=== PATIENT | female | born 1965 | race Two or more races ===

== ENCOUNTER 2017-12-26 17:00 | Inpatient (IN) | payer MEDICAID ==
--- NOTE | 2017-12-26 17:18 | ED Physician Chart ---
ED Chief Complaint/HPI - Patient Information Date Seen:: 12/26/17 Time Seen:: 15:15 Chief Complaint:: anemia History of Present Illness:: onset today Allergies:: Allergies Allergy/AdvReac Type Severity Reaction Status Date / Time BRADEN Inhibitors Allergy Verified 12/26/17 17:07 enalapril maleate Allergy Verified 12/26/17 17:07 [From Vasotec] enalaprilat dihydrate Allergy Verified 12/26/17 17:07 [From Vasotec] metronidazole [From Flagyl] Allergy Verified 12/26/17 17:07 Vitals:: Vital Signs - 8 hr 12/26/17 17:00 Temp 98.2 F HR 112 RR 18 BP 117/57 O2 Sat % 100 Historian:: EMS, Medical Records Review:: Nurse's Note Reviewed, EMS run form Reviewed, Transfer documents Reviewed, Patient unable to respond <Junito Escobar - Last Filed: 12/26/17 18:56> - Patient Information Allergies:: Allergies Allergy/AdvReac Type Severity Reaction Status Date / Time BRADEN Inhibitors Allergy Verified 12/26/17 17:07 enalapril maleate Allergy Verified 12/26/17 17:07 [From Vasotec] enalaprilat dihydrate Allergy Verified 12/26/17 17:07 [From Vasotec] metronidazole [From Flagyl] Allergy Verified 12/26/17 17:07 Vitals:: Vital Signs - 8 hr 12/26/17 12/26/17 12/26/17 17:00 17:55 19:29 Temp 98.2 F HR 112 105 119 RR 18 18 18 BP 117/57 117/57 O2 Sat % 100 100 99 <Aline Kearns - Last Filed: 12/26/17 20:10> ED Review of Systems - Review of Systems General/Constitutional: No fever (patient none verbal unable to provide info) Skin: Skin lesions <Junito Escobar - Last Filed: 12/26/17 18:56> ED Past Medical History - Past Medical History Past Medical History: HTN (dm ecoli cerebral palsy svt hypothyriodism), DM ( cerebral palsy), CVA/TIA, Thyroid disorder, Other (respiratory failure ecoli sepsis) Family History: None Social History: No Drug Use Psychiatricy History: Other (cerebral palsy) <Junito Escobar - Last Filed: 12/26/17 18:56> Family Medical History - Family Member Mother History Unknown: Yes <Junito Escobar - Last Filed: 12/26/17 18:56> ED Physical Exam - Physical Examination General/Constitutional: No distress, Non-toxic appearing Head: Atraumatic Neck: Nontender Respiratory: Nl effort/Exclusion (rhonchi) Cardio Vascular: RRR GI: No tenderness/rebounding/guarding (stool neg blood) <Junito Escobar - Last Filed: 12/26/17 18:56> - Physical Examination Other Skin comments:: large, 5 inch x 5 inch fungating mass present on the left breast (according to charge nurse at the [facility], the sister, Karen Underwood stated that surgery should not be performed on her sister Joie. There is a slow ooze from this left breast mass which I will silver nitrate. Recommend covering the mass with antibiotic ointment and apply a large piece of xeroform, adaptic or telfa on top. A sports bra would keep the dressings in place. <Aline Kearns - Last Filed: 12/26/17 20:10> ED Labs/Radiology/EKG Results - Lab Results Results: Laboratory Tests 12/26/17 12/26/17 12/26/17 18:20 18:20 18:35 WBC 7.4 RBC 2.67 L Hgb 6.7 L* Hct 20.7 L* MCV 77.6 L MCH 24.9 L MCHC Differential 32.2 RDW 13.3 Plt Count 574 H MPV 6.9 Neutrophils % 63.0 Lymphocytes % 21.2 Monocytes % 11.7 H Eosinophils % 2.9 Basophils % 1.2 Sodium 133 L Potassium 4.1 Chloride 96 L Carbon Dioxide 31.6 H Anion Gap 9.5 BUN 36 H Creatinine 0.8 Est GFR ( Amer) > 60.0 Est GFR (Non-Af Amer) > 60.0 BUN/Creatinine Ratio 45.0 Glucose 97 Calcium 9.8 Urine Source CLEAN C Urine Color YELLOW Urine Clarity HAZY Urine pH 6.0 Ur Specific [place] <= 1.005 Urine Protein NEGATIVE Urine Glucose (UA) NEGATIVE Urine Ketones NEGATIVE Urine Blood NEGATIVE Urine Nitrate NEGATIVE Urine Bilirubin NEGATIVE Urine Urobilinogen 0.2 Ur Leukocyte Esterase TRACE H Urine RBC NONE SEEN Urine WBC 2-5 Ur Epithelial Cells FEW Urine Bacteria NONE SEEN <Aline Kerans - Last Filed: 12/26/17 20:10> ED Assessment - Assessment General Assessment: anemia per history trachea dependent <Junito Escobar - Last Filed: 12/26/17 18:56> - Assessment Assessment/Comments:: Examined patient upon from receiving report from Dr. Escobar. Dr. Pierce called us for admit orders at 19:45 p.m. - Procedures Procedures:: Six silver nitrate sticks applied to left breast mass which is oozing to stop bleeding. Pressure applied. Informed Consent: Procedure/risk/benefits explained by MD: No (implied. Patient has inadequate mental capacity.) <Aline Kearns - Last Filed: 12/26/17 20:10> ED Septic Shock - . Is Septic Shock (SBP<90, OR Lactate>4 mmol\L) present?: No - <6hrs of presentation: Vital Signs: Vital Signs - 8 hr 12/26/17 17:00 Temp 98.2 F HR 112 RR 18 BP 117/57 O2 Sat % 100 <Junito Escoabr - Last Filed: 12/26/17 18:56> - . Is Septic Shock (SBP<90, OR Lactate>4 mmol\L) present?: No - <6hrs of presentation: Vital Signs: Vital Signs - 8 hr 12/26/17 12/26/17 12/26/17 17:00 17:55 19:29 Temp 98.2 F HR 112 105 119 RR 18 18 18 BP 117/57 117/57 O2 Sat % 100 100 99 <Aline Kearns - Last Filed: 12/26/17 20:10> ED Reassessment (Disposition) - Diagnosis Diagnosis:: Anemia Large, fungating left breast mass Failure to Thrive <Aline Kearns - Last Filed: 12/26/17 20:10> ED Discharge Plan <Junito Escobar - Last Filed: 12/26/17 18:56> <Aline Kearns - Last Filed: 12/26/17 20:10> - Patient Disposition Admit/Discharge/Transfer: TRANSFER TO ACUTE HOSP
[2017-12-26 18:39] LABS: BASOPHILE ABSOLUTE 0.1 Th/cumm (0-0.2); EOSINOPHILE ABSOLUTE 0.2 Th/cmm (0.1-0.4); LYMPHOCYTE ABSOLUTE 1.6 Th/cmm (1.5-3.0); MEAN CORPUSCULAR HEMOGLOBIN 24.9 pg (27.0-31.0); MEAN CORPUSCULAR HGB CONC 32.2 pg (28.0-36.0); MONOCYTE ABSOLUTE 0.9 Th/cmm (0.3-1.0)
[2017-12-26 18:42] LABS: % BASOPHILS 1.2 % (0.0-2.0); % EOSINOPHILS 2.9 % (0.0-5.0); % LYMPHOCYTES 21.2 % (20.0-50.0); % MONOCYTES 11.7 % (2.0-10.0); ANION GAP 9.5 (7.0-16.0); BUN - UREA NITROGEN 36 mg/dL (7-25); CALCIUM SERUM 9.8 mg/dL (8.6-10.3); CARBON DIOXIDE 31.6 mEq/L (21.0-31.0); CHLORIDE 96 mEq/L (98-107); CREATININE - SERUM 0.8 mg/dL (0.6-1.2); GFR AFRICAN-AMERICAN > 60.0 ml/min (>90); GFR NON AFRICAN-AMERICAN > 60.0 ml/min; GLUCOSE 97 mg/dL (70-105); MEAN CELL VOLUME 77.6 fl (81-100); MEAN PLATELET VOLUME 6.9 fl; NEUTROPHILE ABSOLUTE 4.6 Th/cmm (1.8-8.0); PLATELET COUNT 574 Th/cmm (150-400); POTASSIUM SERUM 4.1 mEq/L (3.5-5.1); RED BLOOD COUNT 2.67 Mil/cmm (3.80-5.10); RED CELL DISTRIBUTION WIDTH 13.3 % (11.5-20.0); SODIUM SERUM 133 mEq/L (136-145); WHITE BLOOD COUNT 7.4 Th/cmm (4.8-10.8)
[2017-12-26 18:54] LABS: HEMATOCRIT 20.7 % (41.0-60); HEMOGLOBIN 6.7 gm/dL (12-16)
[2017-12-26 18:56] LABS: URINE MICROSCOPIC INDICATED? YES; URINE SOURCE CLEAN C
[2017-12-26 18:57] LABS: URINE BILIRUBIN NEGATIVE (NEGATIVE); URINE BLOOD NEGATIVE (NEGATIVE); URINE GLUCOSE (UA) NEGATIVE (NEGATIVE); URINE KETONE NEGATIVE (NEGATIVE); URINE NITRATE NEGATIVE (NEGATIVE); URINE PROTEIN NEGATIVE (NEGATIVE); URINE UROBILINOGEN 0.2 E.U./dL (0.2 - 1.0)
[2017-12-26 19:27] LABS: URINE CLARITY HAZY (CLEAR); URINE COLOR YELLOW
[2017-12-26 19:31] LABS: URINE BACTERIA NONE SEEN /hpf (NONE SEEN); URINE EPITHELIAL CELLS FEW /lpf (FEW); URINE LEUKOCYTE ESTERASE TRACE (NEGATIVE); URINE RBC NONE SEEN /hpf (0-5)
[2017-12-26] MEDS ORDERED: Silver Nitrate 1 Swab TP ONE (19:41)
[2017-12-26] MEDS ORDERED: Morphine Sulfate 2 mg/mL 1mL Syr IV STA (19:55)
[2017-12-26] MEDS ORDERED: Triple Antibiotic 0.94 gm Pkt TP ONE (19:56)
[2017-12-26] MEDS ORDERED: Morphine Sulfate 2 mg/mL 1mL Syr ONE (19:57)
[2017-12-26] MEDS ORDERED: Silver Nitrate 1 Swab TP STA (20:02)
[2017-12-26] MEDS ORDERED: MORPHINE SULFATE GT PRN (22:59)
[2017-12-26] MEDS ORDERED: Magnesium Hydroxide (MOM) 30 mL UDC GT PRN (22:59)
[2017-12-26] MEDS: Hydrocodone/APAP 5mg/325mg Tab GT SCH (23:11)
[2017-12-26] MEDS: Dicyclomine 10 mg Cap GT SCH (23:12)
[2017-12-27] MEDS: D5-0.9%NS 1,000 ML IV SCH ×2 (02:06→14:24)
[2017-12-27 04:22] LABS: % BASOPHILS 1.3 % (0.0-2.0); % EOSINOPHILS 2.2 % (0.0-5.0); % LYMPHOCYTES 23.2 % (20.0-50.0); % MONOCYTES 12.2 % (2.0-10.0); % NEUTROPHILS 61.1 % (40.0-80.0); BASOPHILE ABSOLUTE 0.1 Th/cumm (0-0.2); EOSINOPHILE ABSOLUTE 0.2 Th/cmm (0.1-0.4); LYMPHOCYTE ABSOLUTE 1.9 Th/cmm (1.5-3.0); MEAN CELL VOLUME 79.9 fl (81-100); MEAN CORPUSCULAR HEMOGLOBIN 26.3 pg (27.0-31.0); MEAN CORPUSCULAR HGB CONC 32.9 pg (28.0-36.0); NEUTROPHILE ABSOLUTE 5.1 Th/cmm (1.8-8.0); PLATELET COUNT 483 Th/cmm (150-400); WHITE BLOOD COUNT 8.3 Th/cmm (4.8-10.8)
[2017-12-27 04:33] LABS: INR 0.94 (0.5-1.4); PROTHROMBIN TIME (TEST) 9.8 SECONDS (9.5-11.5)
[2017-12-27 04:36] LABS: ALB/GLOB RATIO 0.7 (1.0-1.8); ALKALINE PHOSPHATASE 60 U/L (34-104); ANION GAP 7.7 (7.0-16.0); BILIRUBIN,TOTAL 0.6 mg/dL (0.3-1.0); BUN - UREA NITROGEN 32 mg/dL (7-25); CALCIUM SERUM 9.5 mg/dL (8.6-10.3); CARBON DIOXIDE 32.6 mEq/L (21.0-31.0); CHLORIDE 99 mEq/L (98-107); CREATININE - SERUM 0.8 mg/dL (0.6-1.2); GFR AFRICAN-AMERICAN > 60.0 ml/min (>90); GFR NON AFRICAN-AMERICAN > 60.0 ml/min; GLUCOSE 116 mg/dL (70-105); MAGNESIUM 2.1 mg/dL (1.9-2.7); POTASSIUM SERUM 4.3 mEq/L (3.5-5.1); SGOT 22 U/L (13-39); SGPT/ALT 7 U/L (7-52); SODIUM SERUM 135 mEq/L (136-145); TOTAL PROTEIN,SERUM 7.2 gm/dL (6.0-8.3)
[2017-12-27 04:37] LABS: HEMATOCRIT 31.2 % (41.0-60); HEMOGLOBIN 10.3 gm/dL (12-16)
[2017-12-27] MEDS: Hydrocodone/APAP 5mg/325mg Tab GT SCH ×2 (05:03→10:16)
[2017-12-27] MEDS: Dicyclomine 10 mg Cap GT SCH ×4 (05:03→23:19)
[2017-12-27] MEDS: Ipratropium Neb 0.5 mg/2.5 mL UD HHN SCH ×4 (07:06→19:31)
[2017-12-27] MEDS: Albuterol Nebulizer 2.5mg/3mL HHN SCH ×4 (07:06→19:31)
[2017-12-27] MEDS ORDERED: Pantoprazole 40 mg/Packet GT SCH (07:30)
[2017-12-27 07:50] VITALS: BP 105/63
[2017-12-27] MEDS: Ferrous Sulfate 300 MG/5 ML UDC GT SCH ×3 (08:12→21:41)
[2017-12-27] MEDS: Levothyroxine 0.05 Mg Tab GT SCH (08:12)
[2017-12-27] MEDS: Docusate Sodium 100 mg/10 mL UD GT SCH ×2 (08:12→16:16)
--- NOTE | 2017-12-27 08:32 | Diagnostic Imaging Report ---
CHEST X-RAY: AP view INDICATION: Pneumonia COMPARISON: 02/12/2016 FINDINGS: Tracheostomy tube is stable. Patient's hand obscures the left lower hemithorax. Increased left basal lung markings are noted. There is right apical pleural thickening. There appears to be a right-sided nipple shadow. Heart size normal. Osseous structures are intact. Gas-filled loops of bowel are noted. IMPRESSION: Patient's hand obscures the left lower hemithorax. Increased left basal lung markings are noted. Infiltrate in this region cannot be excluded. Right apical pleural thickening. Right basal nipple shadow. Please perform follow-up exams with nipple markers.
[2017-12-27] MEDS ORDERED: Non-Formulary Item 1 EA (Amino Acids/Protein Hydrolys [Pro-Stat Awc Liquid] 30 ML) GT SCH (09:00)
[2017-12-27] MEDS ORDERED: Multivitamin w/ Minerals 15 mL UDC GT SCH (09:00)
[2017-12-27] MEDS: Multivitamin w/ Minerals Tab GT SCH (10:16)
[2017-12-27] MEDS: Polyvinyl Alcohol Ophth Soln 15 mL Bottle EACH EYE SCH ×3 (10:17→21:42)
[2017-12-27] MEDS: Morphine Sulfate 2 mg/mL 1mL Syr IVP PRN ×3 (14:07→23:20)
--- NOTE | 2017-12-27 15:18 | Internal Medicine Prog Note ---
Internal Medicine Subjective - Subjective Service Date: 12/27/17 ([facility] [id number]) Internal Medicine Objective - Results Result Diagrams: 12/27/17 04:05 12/27/17 04:05 Recent Labs: Laboratory Last Values WBC 8.3 Th/cmm (4.8-10.8) 12/27/17 04:05 RBC 3.90 Mil/cmm (3.80-5.10) 12/27/17 04:05 Hgb 10.3 gm/dL (12-16) L D 12/27/17 04:05 Hct 31.2 % (41.0-60) L D 12/27/17 04:05 MCV 79.9 fl (81-100) L 12/27/17 04:05 MCH 26.3 pg (27.0-31.0) L 12/27/17 04:05 MCHC Differential 32.9 pg (28.0-36.0) 12/27/17 04:05 RDW 13.0 % (11.5-20.0) 12/27/17 04:05 Plt Count 483 Th/cmm (150-400) H 12/27/17 04:05 MPV 7.0 fl 12/27/17 04:05 Neutrophils % 61.1 % (40.0-80.0) 12/27/17 04:05 Lymphocytes % 23.2 % (20.0-50.0) 12/27/17 04:05 Monocytes % 12.2 % (2.0-10.0) H 12/27/17 04:05 Eosinophils % 2.2 % (0.0-5.0) 12/27/17 04:05 Basophils % 1.3 % (0.0-2.0) 12/27/17 04:05 PT 9.8 SECONDS (9.5-11.5) 12/27/17 04:05 INR 0.94 (0.5-1.4) 12/27/17 04:05 PTT (Actin FS) 23.4 SECONDS (26.0-38.0) L 12/27/17 04:05 Sodium 135 mEq/L (136-145) L 12/27/17 04:05 Potassium 4.3 mEq/L (3.5-5.1) 12/27/17 04:05 Chloride 99 mEq/L (98-107) 12/27/17 04:05 Carbon Dioxide 32.6 mEq/L (21.0-31.0) H 12/27/17 04:05 Anion Gap 7.7 (7.0-16.0) 12/27/17 04:05 BUN 32 mg/dL (7-25) H 12/27/17 04:05 Creatinine 0.8 mg/dL (0.6-1.2) 12/27/17 04:05 Est GFR ( Amer) > 60.0 ml/min (>90) 12/27/17 04:05 Est GFR (Non-Af Amer) > 60.0 ml/min 12/27/17 04:05 BUN/Creatinine Ratio 40.0 12/27/17 04:05 Glucose 116 mg/dL (70-105) H 12/27/17 04:05 Calcium 9.5 mg/dL (8.6-10.3) 12/27/17 04:05 Magnesium 2.1 mg/dL (1.9-2.7) 12/27/17 04:05 Total Bilirubin 0.6 mg/dL (0.3-1.0) 12/27/17 04:05 AST 22 U/L (13-39) 12/27/17 04:05 ALT 7 U/L (7-52) 12/27/17 04:05 Alkaline Phosphatase 60 U/L (34-104) 12/27/17 04:05 B-Natriuretic Peptide 30.6 pg/mL (5.0-100.0) 12/27/17 04:05 Total Protein 7.2 gm/dL (6.0-8.3) 12/27/17 04:05 Albumin 3.0 gm/dL (3.7-5.3) L 12/27/17 04:05 Globulin 4.2 gm/dL 12/27/17 04:05 Albumin/Globulin Ratio 0.7 (1.0-1.8) L 12/27/17 04:05 TSH 2.05 uIU/ml (0.34-5.60) 12/27/17 04:05 Urine Source CLEAN C 12/26/17 18:35 Urine Color YELLOW 12/26/17 18:35 Urine Clarity HAZY (CLEAR) 12/26/17 18:35 Urine pH 6.0 (4.6 - 8.0) 12/26/17 18:35 Ur Specific [place] <= 1.005 (1.005-1.030) 12/26/17 18:35 Urine Protein NEGATIVE mg/dL (NEGATIVE) 12/26/17 18:35 Urine Glucose (UA) NEGATIVE mg/dL (NEGATIVE) 12/26/17 18:35 Urine Ketones NEGATIVE mg/dL (NEGATIVE) 12/26/17 18:35 Urine Blood NEGATIVE (NEGATIVE) 12/26/17 18:35 Urine Nitrate NEGATIVE (NEGATIVE) 12/26/17 18:35 Urine Bilirubin NEGATIVE (NEGATIVE) 12/26/17 18:35 Urine Urobilinogen 0.2 E.U./dL (0.2 - 1.0) 12/26/17 18:35 Ur Leukocyte Esterase TRACE (NEGATIVE) H 12/26/17 18:35 Urine RBC NONE SEEN /hpf (0-5) 12/26/17 18:35 Urine WBC 2-5 /hpf (0-5) 12/26/17 18:35 Ur Epithelial Cells FEW /lpf (FEW) 12/26/17 18:35 Urine Bacteria NONE SEEN /hpf (NONE SEEN) 12/26/17 18:35 Blood Type O POSITIVE 12/26/17 19:15 Antibody Screen NEGATIVE 12/26/17 19:15 Crossmatch See Detail 12/26/17 19:15 - Physical Exam Vitals and I&O: Vital Signs Temp 98.4 F 12/27/17 12:00 Pulse 9 12/27/17 14:00 Resp 20 12/27/17 14:00 BP 109/67 12/27/17 14:00 Pulse Ox 98 12/27/17 14:00 Intake & Output 12/26/17 12/27/17 12/27/17 18:59 06:59 18:59 Intake Total 1340 984 Balance 1340 984 Weight (lbs) 105 lb 83 lb Intake: Intake, IV Amount 984 D5-0.9%Ns 1,000 ml @ 80 984 mls/hr IV .[id number] [facility] Rx #:[id number] Tube Feeding 240 Blood Product 1000 Other 100 Other: Weight Source Estimated Bedscale Active Medications: Current Medications Acetaminophen (Tylenol) 650 mg GT Q4H PRN PRN Reason: mild pain or temp >101 Stop: 02/24/18 22:58 Acetaminophen/Hydrocodone Bitart ([place] 5mg/325mg) 1 tab GT Q6H PRN PRN Reason: Pain (Moderate) Stop: 02/24/18 22:59 Albuterol Sulfate (Albuterol 2.5mg/3ml Neb Ud) 2.5 mg HHN QIDRT [facility] Stop: 02/25/18 06:59 Last Admin: 12/27/17 10:54 Dose: 2.5 mg Artificial Tears (Artificial Tears Ophth Soln) 1 drop EACH EYE TID STEPHEN Stop: 02/25/18 08:59 Last Admin: 12/27/17 14:07 Dose: 1 drop Ascorbic Acid (Vitamin C) 500 mg GT BID [facility] Stop: 02/25/18 08:59 Last Admin: 12/27/17 08:12 Dose: 500 mg Dicyclomine HCl (Bentyl) 20 mg GT Q6H STEPHEN Stop: 02/24/18 22:59 Last Admin: 12/27/17 10:16 Dose: 20 mg Docusate Sodium (Colace) 100 mg GT BID [facility] Stop: 02/25/18 08:59 Last Admin: 12/27/17 08:12 Dose: 100 mg Ferrous Sulfate (Iron) 300 mg GT TID [facility] Stop: 02/25/18 08:59 Last Admin: 12/27/17 14:06 Dose: 300 mg Dextrose/Sodium Chloride (D5-0.9%Ns) 1,000 mls @ 80 mls/hr IV .[id number] [facility] Stop: 02/24/18 23:14 Last Admin: 12/27/17 14:24 Dose: 80 mls/hr Ipratropium [place] (Atrovent Neb 0.5mg/2.5ml) 0.5 mg HHN QIDRT [facility] Stop: 02/25/18 06:59 Last Admin: 12/27/17 10:54 Dose: 0.5 mg Levothyroxine Sodium (Synthroid) 0.05 mg GT DAILY [facility] Stop: 02/25/18 08:59 Last Admin: 12/27/17 08:12 Dose: 0.05 mg Magnesium Hydroxide (Milk Of Magnesia) 30 ml GT Q6H PRN PRN Reason: Constipation Stop: 02/24/18 22:58 Miscellaneous (Amino Acids/Protein Hydrolys [Pro-Stat Awc Liquid]) 30 ml GT DAILY [facility] Stop: 02/25/18 08:59 Morphine Sulfate (Ms-Contin) 15 mg PO BID STEPHEN Stop: 02/25/18 16:59 Morphine Sulfate (Morphine) 2 mg IVP Q4H PRN PRN Reason: Pain (Severe) Stop: 02/25/18 13:18 Last Admin: 12/27/17 14:07 Dose: 2 mg Ondansetron HCl (Zofran) 4 mg IV Q8H PRN PRN Reason: Nausea / Vomiting Stop: 02/24/18 23:00 Pantoprazole Sodium (Protonix) 40 mg GT BID [facility] Stop: 02/25/18 16:59 Sucralfate (Carafate) 1 gm GT QID [facility] Stop: 02/25/18 08:59 Last Admin: 12/27/17 14:07 Dose: 1 gm - Procedures Procedures: Procedures Procedure Code Date BLOOD TRANSFUSION SERVICE 19601 06/21/10 CHANGE FEEDING DEVICE IN UP INTEST TRACT, INTERN BRAND APPROACH [id number] 02/09/16 CHANGE GASTROSTOMY TUBE 08642 02/09/16 CONTINUOUS INVASIVE MECHANICAL VENTILATION <96 CONSEC HRS 96.71 05/10/10 CONTINUOUS INVASIVE MECHANICAL VENTILATION =/>96 CONSEC HRS 96.72 06/21/10 EGD BIOPSY SINGLE/MULTIPLE 32987 02/09/16 EGD DIAGNOSTIC BRUSH WASH 07664 07/21/[address] GASTROSTOMY TUBE 27199 02/09/16 EXCISION OF STOMACH, PYLORUS, ENDO, DIAGN [id number] 02/09/16 GASTRIC LAVAGE 96.33 07/21/09 INSERT INDWELLING CATH 57.94 06/21/10 INSERT NON-TUNNEL CV CATH 90400 07/21/09 INSERT PICC CATH 12191 06/21/10 INSERT TEMP BLADDER CATH 50818 06/21/10 INSPECTION OF LOWER INTESTINAL TRACT, ENDO [id number] 02/09/16 OTHER ENDOSCOPY OF SM INTEST 45.13 04/13/11 PACKED CELL TRANSFUSION 99.04 06/21/10 PERCUTANEOUS GASTROJEJUNOSTOMY [ENDOSCOPIC] 44.32 06/21/10 PERCUTANEOUS [ENDOSCOPIC] GASTROSTOMY [PEG] 43.11 09/10/06 PERCUTANEOUS [ENDOSCOPIC] JEJUNOSTOMY [PEG] 46.32 07/21/09 REPLACE GASTROSTOMY TUBE 97.02 04/13/11 REPLACE SMALL BOWEL TUBE 97.03 05/10/10 SMALL BOWEL ENDOSCOPY 03499 06/21/10 VENOUS CATHETERIZATION NEC 38.93 06/21/10
[2017-12-27] MEDS: Pantoprazole 40 mg/Packet GT SCH (16:16)
--- NOTE | 2017-12-27 18:47 | Consultation ---
DATE OF CONSULTATION: 12/27/2017 HEMATOLOGY ONCOLOGY CONSULTATION REFERRING PHYSICIAN: Dr. Pierce. REASON FOR CONSULTATION: Breast mass. HISTORY OF PRESENT ILLNESS: The patient is a 52-year-old female resident of [facility]. She was admitted because of severe anemia and she was transfused. She was also found to have a left breast fungating mass; therefore, I was asked to evaluate. PAST MEDICAL HISTORY: History of respiratory failure, status post tracheostomy, cerebral palsy, diabetes, chronic anemia, and hypertension. MEDICATIONS: Reviewed. SOCIAL HISTORY: [place] resident halfway. HOSPITAL MEDICATIONS: Carafate, Protonix, Zofran, MS Contin, Synthroid, iron, Atrovent. PHYSICAL EXAMINATION: GENERAL: The patient is awake, moving her head and looking around, noncommunicative. VITAL SIGNS: Temperature 98, blood pressure 105/57. HEENT: Tracheostomy in place, peripheral IV in the right arm. CHEST: Left breast fungating mass foul smelling with infiltration into chest wall. ABDOMEN: Gastrostomy tube in place. Patel catheter in place. EXTREMITIES: Atrophic muscles. LABORATORY DATA: Hemoglobin 6.7 from admission after transfusion was 10.3 with normal white count and elevated platelet count 483, MCV from admission was 77. Coagulation panel normal. Liver function is normal. Creatinine 0.8. ASSESSMENT: Left breast mass most consistent with infiltrating malignant neoplasm. I will obtain CT scan of the chest and abdomen and pelvis to evaluate for metastatic disease. The patient never had a biopsy confirmation for pathology and she will need biopsy confirmation from the indurated tissue in the fungating mass. I will obtain a tumor marker CA 27-29. Based on the results from pathology of the biopsy if the tumor is hormone receptor positive, the patient will benefit from hormone therapy to shrink down the tumor and help with the healing process. I will up by Flagyl and nystatin to the fungating mass. Thank you, Dr. Pierce for the opportunity to participate in the care of this interesting case with you. JOB# [id number]
[2017-12-27] MEDS: cefTRIAXone 1 GM in Sodium Chloride 0.9% 50 ML IV SCH (20:10)
[2017-12-27] MEDS ORDERED: IOHEXOL 300mgI/mL 100 ML VIAL ONE (20:32)
--- NOTE | 2017-12-28 01:11 | History & Physical ---
ADMIT DATE: 12/27/2017 DICTATED FOR: Christian Pierce D.O. CHIEF COMPLAINT: Low hemoglobin of 6.4. HISTORY OF PRESENT ILLNESS: This is a 52-year-old female who is well known to me from [facility]. I was called on this patient due to hemoglobin of 6.4. Initially, the patient's ____ subacute unit ____ transferred to hospital, but when labs are reported to the patient's family and explained the results, the patient's family members wanted to change ____ to transfer the patient to the hospital for blood transfusion. Upon examination, the patient is awake and alert, on ____ noted with thick copious amount of secretions. PAST MEDICAL HISTORY: Chronic respiratory failure, tracheostomy status, dysphagia, gastrostomy, cerebral palsy, intellectual disability, type 2 diabetes, anemia, and hypertension. ALLERGIES: BRADEN INHIBITORS, ENALAPRIL, AND FLAGYL. SOCIAL HISTORY: The patient is a [place] resident ____ nursing care. MEDICATIONS: Please see medication list. REVIEW OF SYSTEMS: Unable to obtain due to patient's mental status. The patient is nonverbal. PHYSICAL EXAMINATION: GENERAL: The patient is awake, nonverbal with tracheostomy, in no apparent distress. VITAL SIGNS: Temperature 98.4, heart rate 95, blood pressure 109/56, and O2 of 98%. HEENT: Head, normocephalic and atraumatic. NECK: Supple. No mass. LUNGS: Scattered rhonchi. HEART: Regular rate and rhythm. No murmurs or gallop. BREASTS: Large 5 x 5 fungating mass on the left breast. ABDOMEN: Soft, nontender, and nondistended. LABORATORY DATA: WBC 8.3, H and H 10.3/31.2, and platelets of 483. Sodium 135, potassium 4.3, chloride 99, BUN 32, and creatinine 0.8. DIAGNOSTIC STUDIES: The patient had a chest x-ray done and impression is an obscured left lower hemothorax, increased left basal lung markings are noted. Infiltrate in this region cannot be excluded, right basilar nipple shadow. ASSESSMENT: Severe anemia, left breast CA, acute renal insufficiency, rule out acute dehydration, mild protein calorie malnutrition, cerebral palsy, chronic respiratory failure, dysphagia, type 2 diabetes, and gastrostomy and tracheostomy status. PLAN: We will monitor the patient's H and H. We will get potash flaker on the case as well as oncologist. We will get sputum for culture and respiratory treatments to continue. We will continue to monitor this patient. [facility]# [id number]
--- NOTE | 2017-12-28 01:45 | Consultation ---
DATE OF CONSULTATION: 12/27/[address] Pierce for this consultation. HISTORY OF PRESENT ILLNESS: This is a 52-year-old female who is being seen in the long term. The patient was found to have a breast mass and according to family, decided not to do anything except just comfort care. The patient has been having some abdominal pain on and off and was very pale and I saw her on Tuesday and ordered a CBC. It apparently came back with severe anemia and is transferred here for further evaluation. The patient received blood transfusion. She looks a little bit better, but still very weak. The patient has lost lot of weight as for the past few months. Her other past medical history are asthma, mental disability, and upper airway obstruction status post tracheostomy. PHYSICAL EXAMINATION: GENERAL: Awake, not in acute distress. VITAL SIGNS: Temperature 98.4, pulse 105, respiration is 23, blood pressure 119/62, and saturation 100%. HEENT: Atraumatic and normocephalic. Ears, nose, and throat normal. NECK: Supple. No JVD. CHEST: There are good breath sounds, few rhonchi. HEART: Regular. ABDOMEN: Soft. EXTREMITIES: No edema. LABORATORY DATA AND DIAGNOSTIC STUDIES: WBC 8.3, hemoglobin 10.3, hematocrit 31.3, and platelets 483. Sodium 135, potassium 4.3, BUN 32, and creatinine 0.8. Chest x-ray showed an obvious infiltrate. IMPRESSION: This is a 52-year-old female with severe anemia, most likely due to the breast mass, possible malignancy with metastasis. PLAN: 1. Continue nebulizer treatment. 2. Thickened skin. 3. Antibiotics. 4. Hematology/Oncology evaluation in progress. JOB# [id number]
[2017-12-28] MEDS: D5-0.9%NS 1,000 ML IV SCH ×2 (03:48→15:26)
[2017-12-28] MEDS: Morphine Sulfate 2 mg/mL 1mL Syr IVP PRN ×3 (03:48→20:20)
[2017-12-28 05:04] LABS: % BASOPHILS 0.5 % (0.0-2.0); % EOSINOPHILS 0.7 % (0.0-5.0); % LYMPHOCYTES 10.6 % (20.0-50.0); % MONOCYTES 9.2 % (2.0-10.0); BASOPHILE ABSOLUTE 0.1 Th/cumm (0-0.2); EOSINOPHILE ABSOLUTE 0.1 Th/cmm (0.1-0.4); HEMATOCRIT 31.4 % (41.0-60); HEMOGLOBIN 10.2 gm/dL (12-16); LYMPHOCYTE ABSOLUTE 1.4 Th/cmm (1.5-3.0); MEAN CORPUSCULAR HGB CONC 32.4 pg (28.0-36.0); MEAN PLATELET VOLUME 6.9 fl; MONOCYTE ABSOLUTE 1.2 Th/cmm (0.3-1.0); NEUTROPHILE ABSOLUTE 10.3 Th/cmm (1.8-8.0); PLATELET COUNT 483 Th/cmm (150-400); RED BLOOD COUNT 3.92 Mil/cmm (3.80-5.10); RED CELL DISTRIBUTION WIDTH 13.6 % (11.5-20.0); WHITE BLOOD COUNT 13.1 Th/cmm (4.8-10.8)
[2017-12-28] MEDS: Dicyclomine 10 mg Cap GT SCH ×4 (05:24→22:00)
[2017-12-28 05:52] LABS: ANION GAP 11.8 (7.0-16.0); BUN - UREA NITROGEN 12 mg/dL (7-25); CALCIUM SERUM 9.3 mg/dL (8.6-10.3); CARBON DIOXIDE 25.8 mEq/L (21.0-31.0); CHLORIDE 106 mEq/L (98-107); CREATININE - SERUM 0.5 mg/dL (0.6-1.2); GFR AFRICAN-AMERICAN > 60.0 ml/min (>90); GFR NON AFRICAN-AMERICAN > 60.0 ml/min; GLUCOSE 129 mg/dL (70-105); POTASSIUM SERUM 3.6 mEq/L (3.5-5.1); SODIUM SERUM 140 mEq/L (136-145)
[2017-12-28] MEDS: Albuterol Nebulizer 2.5mg/3mL HHN SCH ×4 (07:09→18:57)
[2017-12-28] MEDS: Ipratropium Neb 0.5 mg/2.5 mL UD HHN SCH ×4 (07:09→18:57)
[2017-12-28] MEDS: Docusate Sodium 100 mg/10 mL UD GT SCH ×2 (08:34→16:08)
[2017-12-28] MEDS: Levothyroxine 0.05 Mg Tab GT SCH (08:34)
[2017-12-28] MEDS: Ferrous Sulfate 300 MG/5 ML UDC GT SCH ×3 (08:35→20:18)
[2017-12-28] MEDS: Multivitamin w/ Minerals Tab GT SCH (08:35)
[2017-12-28] MEDS: Pantoprazole 40 mg/Packet GT SCH ×2 (08:36→16:08)
[2017-12-28] MEDS: Polyvinyl Alcohol Ophth Soln 15 mL Bottle EACH EYE SCH ×3 (08:39→20:18)
--- NOTE | 2017-12-28 08:41 | Diagnostic Imaging Report ---
CT Chest with IV contrast HISTORY: Breast cancer. COMPARISON: CT abdomen and pelvis the same day. Technique: Axial images were obtained from the base of the neck to the upper abdomen following administration of IV contrast. Coronal reconstructions were made. Total DLP 199, CTD I 6.4 FINDINGS: Findings: Exam is limited due to positioning and motion. Calcified nodules within the right lobe of thyroid gland are noted. A tracheostomy tube is noted. No evidence of mediastinal lymphadenopathy. Heart size is normal. Moderate atherosclerosis is noted with coronary artery calcifications. Distended air-filled esophagus is noted. Evaluation of the pulmonary parenchyma demonstrates chronic changes throughout the lungs. Right apical airspace disease and scarring is seen with areas of bronchiectasis. Few Patchy bilateral infiltrates are noted throughout the bilateral lungs. Subcentimeter nodular infiltrates are also noted. No pleural effusions. Hypoventilatory lung changes are also noted. Degenerative changes of the spine are noted. There is a very large irregular fungating mass of the left breast measuring 10.4 x 4.2 cm. Mildly prominent left axillary lymph nodes are noted enlarged with a 1.6 x 1 cm. IMPRESSION: Very large fungating mass of the left breast most suggestive of malignancy. Mildly prominent left axillary lymph nodes are noted. Neoplastic involvement should be considered. Chronic lung changes with areas of scarring greatest within the right apex with pleural thickening this region. Patchy nodular infiltrates are seen bilaterally. Findings may be due to pneumonia, however, less likely neoplastic involving cannot be excluded. Short-term follow-up after resolution of acute symptoms is recommended for further assessment. Distended air-filled esophagus. Atherosclerosis. Calcified right thyroid lobe nodules. If indicated, ultrasound may be obtained Tracheostomy.
--- NOTE | 2017-12-28 08:46 | Diagnostic Imaging Report ---
CT abdomen and pelvis with intravenous contrast Indication: Breast cancer Comparison: CT abdomen and pelvis 02/09/[address] chest on 12/27/2017, Technique: Axial images were obtained from the lung bases to the bilateral proximal femurs with IV contrast. Coronal reconstructions were made. total DLP: 379, CTDI8.4 FINDINGS: Please refer to CT chest performed the same day for further assessment of the lung bases. Exam is severely limited due to motion and body habitus. No focal hepatic lesions. Hepatomegaly is seen with prominence of the left lobe. No focal splenic lesions. The pancreas is poorly evaluated on this exam. The common bile duct appears prominent measuring up to 1.2 cm. The adrenal glands are poorly visualized. Limited evaluation of the kidneys demonstrates no hydronephrosis or obvious focal lesions. Distended urinary bladder is seen with urinary bladder jets. There may be a wide base left-sided urinary bladder diverticulum. Moderate stool is noted with diffuse marked gaseous distended loops of bowel. There may have been previous surgery of the proximal sigmoid colon. Diverticulosis is noted without evidence of diverticulitis. Percutaneous gastric feeding tube is noted with gas and fluid distended stomach. Diffuse moderate atherosclerosis is noted. No evidence of retroperitoneal lymphadenopathy. No free fluid or free air. Spinal scoliosis is noted. There is abnormal angulation of the hip joints which may be congenital. IMPRESSION: Severely distended loops of gas-filled bowel which may be due to severe ileus or possibly distal obstructive process. Nonspecific Distended fluid-filled loops of small bowel are also noted. Moderate stool. There appear to be postsurgical changes of the proximal sigmoid colon, please correlate with clinical history. Mild diverticulosis. Fluid and air distended stomach containing a percutaneous gastric feeding tube. Prominent common bile duct measuring up to 1.2 cm. If indicated follow-up exam such as ultrasound or MRCP may be obtained. Mildly prominent liver, particularly of the left lobe. Distended urinary bladder. There may be a wide base urinary bladder diverticulum on the left side. Atherosclerotic vascular disease.
[2017-12-28] MEDS: Nystatin Cream 100,000 u/gm Cream 15 gm TP SCH (09:55)
--- NOTE | 2017-12-28 10:28 | General Progress Note ---
Subjective - Review of Systems Service Date: 12/28/17 Objective - Results Result Diagrams: 12/28/17 04:45 12/28/17 04:45 Recent Labs: Laboratory Last Values WBC 13.1 Th/cmm (4.8-10.8) H 12/28/17 04:45 RBC 3.92 Mil/cmm (3.80-5.10) 12/28/17 04:45 Hgb 10.2 gm/dL (12-16) L 12/28/17 04:45 Hct 31.4 % (41.0-60) L 12/28/17 04:45 MCV 80.0 fl (81-100) L 12/28/17 04:45 MCH 26.0 pg (27.0-31.0) L 12/28/17 04:45 MCHC Differential 32.4 pg (28.0-36.0) 12/28/17 04:45 RDW 13.6 % (11.5-20.0) 12/28/17 04:45 Plt Count 483 Th/cmm (150-400) H 12/28/17 04:45 MPV 6.9 fl 12/28/17 04:45 Neutrophils % 79.0 % (40.0-80.0) 12/28/17 04:45 Lymphocytes % 10.6 % (20.0-50.0) L 12/28/17 04:45 Monocytes % 9.2 % (2.0-10.0) 12/28/17 04:45 Eosinophils % 0.7 % (0.0-5.0) 12/28/17 04:45 Basophils % 0.5 % (0.0-2.0) 12/28/17 04:45 PT 9.8 SECONDS (9.5-11.5) 12/27/17 04:05 INR 0.94 (0.5-1.4) 12/27/17 04:05 PTT (Actin FS) 23.4 SECONDS (26.0-38.0) L 12/27/17 04:05 Sodium 140 mEq/L (136-145) 12/28/17 04:45 Potassium 3.6 mEq/L (3.5-5.1) 12/28/17 04:45 Chloride 106 mEq/L (98-107) 12/28/17 04:45 Carbon Dioxide 25.8 mEq/L (21.0-31.0) 12/28/17 04:45 Anion Gap 11.8 (7.0-16.0) 12/28/17 04:45 BUN 12 mg/dL (7-25) 12/28/17 04:45 Creatinine 0.5 mg/dL (0.6-1.2) L 12/28/17 04:45 Est GFR ( Amer) > 60.0 ml/min (>90) 12/28/17 04:45 Est GFR (Non-Af Amer) > 60.0 ml/min 12/28/17 04:45 BUN/Creatinine Ratio 24.0 12/28/17 04:45 Glucose 129 mg/dL (70-105) H 12/28/17 04:45 Calcium 9.3 mg/dL (8.6-10.3) 12/28/17 04:45 Magnesium 2.1 mg/dL (1.9-2.7) 12/27/17 04:05 Total Bilirubin 0.6 mg/dL (0.3-1.0) 12/27/17 04:05 AST 22 U/L (13-39) 12/27/17 04:05 ALT 7 U/L (7-52) 12/27/17 04:05 Alkaline Phosphatase 60 U/L (34-104) 12/27/17 04:05 B-Natriuretic Peptide 30.6 pg/mL (5.0-100.0) 12/27/17 04:05 Total Protein 7.2 gm/dL (6.0-8.3) 12/27/17 04:05 Albumin 3.0 gm/dL (3.7-5.3) L 12/27/17 04:05 Globulin 4.2 gm/dL 12/27/17 04:05 Albumin/Globulin Ratio 0.7 (1.0-1.8) L 12/27/17 04:05 TSH 2.05 uIU/ml (0.34-5.60) 12/27/17 04:05 Urine Source CLEAN C 12/26/17 18:35 Urine Color YELLOW 12/26/17 18:35 Urine Clarity HAZY (CLEAR) 12/26/17 18:35 Urine pH 6.0 (4.6 - 8.0) 12/26/17 18:35 Ur Specific [place] <= 1.005 (1.005-1.030) 12/26/17 18:35 Urine Protein NEGATIVE mg/dL (NEGATIVE) 12/26/17 18:35 Urine Glucose (UA) NEGATIVE mg/dL (NEGATIVE) 12/26/17 18:35 Urine Ketones NEGATIVE mg/dL (NEGATIVE) 12/26/17 18:35 Urine Blood NEGATIVE (NEGATIVE) 12/26/17 18:35 Urine Nitrate NEGATIVE (NEGATIVE) 12/26/17 18:35 Urine Bilirubin NEGATIVE (NEGATIVE) 12/26/17 18:35 Urine Urobilinogen 0.2 E.U./dL (0.2 - 1.0) 12/26/17 18:35 Ur Leukocyte Esterase TRACE (NEGATIVE) H 12/26/17 18:35 Urine RBC NONE SEEN /hpf (0-5) 12/26/17 18:35 Urine WBC 2-5 /hpf (0-5) 12/26/17 18:35 Ur Epithelial Cells FEW /lpf (FEW) 12/26/17 18:35 Urine Bacteria NONE SEEN /hpf (NONE SEEN) 12/26/17 18:35 Blood Type O POSITIVE 12/26/17 19:15 Antibody Screen NEGATIVE 12/26/17 19:15 Crossmatch See Detail 12/26/17 19:15 - Physical Exam Vitals and I&O: Vital Signs Temp 97.5 F 12/28/17 09:00 Pulse 98 12/28/17 09:00 Resp 24 12/28/17 09:00 BP 143/58 12/28/17 09:00 Pulse Ox 98 12/28/17 10:00 Intake & Output 12/27/17 12/28/17 12/28/17 18:59 06:59 18:59 Intake Total 1434 1270 Balance 1434 1270 Weight (lbs) 37.648 kg 37.195 kg Intake: Intake, IV Amount 984 1050 D5-0.9%Ns 1,000 ml @ 80 984 1000 mls/hr IV .[id number] [facility] Rx #:[id number] cefTRIAXone 1 gm In 50 Sodium Chloride 0.9% 50 ml @ 100 mls/hr IV Q24HR [facility] Rx#:[id number] Tube Feeding 330 120 Other 120 100 Other: # Voids 2 5 # Bowel Movements 1 2 Stool Characteristics Soft Formed Brown Weight Source Bedscale Bedscale Active Medications: Current Medications Acetaminophen (Tylenol) 650 mg GT Q4H PRN PRN Reason: mild pain or temp >101 Stop: 02/24/18 22:58 Acetaminophen/Hydrocodone Bitart ([place] 5mg/325mg) 1 tab GT Q6H PRN PRN Reason: Pain (Moderate) Stop: 02/24/18 22:59 Acetylcysteine (Mucomyst 20%) 2 ml HHN Q4HRT [facility] Stop: 02/25/18 18:59 Last Admin: 12/28/17 07:09 Dose: 2 ml Albuterol Sulfate (Albuterol 2.5mg/3ml Neb Ud) 2.5 mg HHN QIDRT [facility] Stop: 02/25/18 06:59 Last Admin: 12/28/17 07:09 Dose: 2.5 mg Artificial Tears (Artificial Tears Ophth Soln) 1 drop EACH EYE TID [facility] Stop: 02/25/18 08:59 Last Admin: 12/28/17 08:39 Dose: 1 drop Ascorbic Acid (Vitamin C) 500 mg GT BID [facility] Stop: 02/25/18 08:59 Last Admin: 12/28/17 08:35 Dose: 500 mg Dicyclomine HCl (Bentyl) 20 mg GT Q6H [facility] Stop: 02/24/18 22:59 Last Admin: 12/28/17 05:24 Dose: 20 mg Docusate Sodium (Colace) 100 mg GT BID [facility] Stop: 02/25/18 08:59 Last Admin: 12/28/17 08:34 Dose: 100 mg Ferrous Sulfate (Iron) 300 mg GT TID [facility] Stop: 02/25/18 08:59 Last Admin: 12/28/17 08:35 Dose: 300 mg Dextrose/Sodium Chloride (D5-0.9%Ns) 1,000 mls @ 80 mls/hr IV .[id number] [facility] Stop: 02/24/18 23:14 Last Admin: 12/28/17 03:48 Dose: 80 mls/hr Ceftriaxone Sodium 1 gm/ (Sodium Chloride) 50 mls @ 100 mls/hr IV Q24HR [facility] Stop: 02/25/18 18:59 Last Infusion: 12/27/17 21:10 Dose: Infused Ipratropium [place] (Atrovent Neb 0.5mg/2.5ml) 0.5 mg HHN QIDRT [facility] Stop: 02/25/18 06:59 Last Admin: 12/28/17 07:09 Dose: 0.5 mg Levothyroxine Sodium (Synthroid) 0.05 mg GT DAILY [facility] Stop: 02/25/18 08:59 Last Admin: 12/28/17 08:34 Dose: 0.05 mg Magnesium Hydroxide (Milk Of Magnesia) 30 ml GT Q6H PRN PRN Reason: Constipation Stop: 02/24/18 22:58 Miscellaneous (Amino Acids/Protein Hydrolys [Pro-Stat Awc Liquid]) 30 ml GT DAILY [facility] Stop: 02/25/18 08:59 Miscellaneous (Pharmacy To Dose) 1 ea MC PRN [facility] Stop: 02/25/18 17:59 Morphine Sulfate (Ms-Contin) 15 mg PO BID [facility] Stop: 02/25/18 16:59 Last Admin: 12/28/17 08:35 Dose: 15 mg Morphine Sulfate (Morphine) 2 mg IVP Q4H PRN PRN Reason: Pain (Severe) Stop: 02/25/18 13:18 Last Admin: 12/28/17 03:48 Dose: 2 mg Nystatin (Mycostatin Cream) 1 appl TP DAILY [facility] Stop: 02/26/18 08:59 Last Admin: 12/28/17 09:55 Dose: 1 appl Ondansetron HCl (Zofran) 4 mg IV Q8H PRN PRN Reason: Nausea / Vomiting Stop: 02/24/18 23:00 Pantoprazole Sodium (Protonix) 40 mg GT BID [facility] Stop: 02/25/18 16:59 Last Admin: 12/28/17 08:36 Dose: 40 mg Sucralfate (Carafate) 1 gm GT QID [facility] Stop: 02/25/18 08:59 Last Admin: 12/28/17 08:35 Dose: 1 gm General: Cooperative Neck: Other (trach) - Procedures Procedures: Procedures Procedure Code Date BLOOD TRANSFUSION SERVICE 95915 06/21/10 CHANGE FEEDING DEVICE IN UP INTEST TRACT, REVENUE CYCLE CONSULTANT APPROACH [id number] 02/09/16 CHANGE GASTROSTOMY TUBE 87811 02/09/16 CONTINUOUS INVASIVE MECHANICAL VENTILATION <96 CONSEC HRS 96.71 05/10/10 CONTINUOUS INVASIVE MECHANICAL VENTILATION =/>96 CONSEC HRS 96.72 06/21/10 EGD BIOPSY SINGLE/MULTIPLE 91467 02/09/16 EGD DIAGNOSTIC BRUSH WASH 28369 07/21/[address] GASTROSTOMY TUBE 13214 02/09/16 EXCISION OF STOMACH, PYLORUS, ENDO, DIAGN [id number] 02/09/16 GASTRIC LAVAGE 96.33 07/21/09 INSERT INDWELLING CATH 57.94 06/21/10 INSERT NON-TUNNEL CV CATH [id number] 07/21/09 INSERT PICC CATH 71627 06/21/10 INSERT TEMP BLADDER CATH 73930 06/21/10 INSPECTION OF LOWER INTESTINAL TRACT, ENDO [id number] 02/09/16 OTHER ENDOSCOPY OF SM INTEST 45.13 04/13/11 PACKED CELL TRANSFUSION 99.04 06/21/10 PERCUTANEOUS GASTROJEJUNOSTOMY [ENDOSCOPIC] 44.32 06/21/10 PERCUTANEOUS [ENDOSCOPIC] GASTROSTOMY [PEG] 43.11 09/10/06 PERCUTANEOUS [ENDOSCOPIC] JEJUNOSTOMY [PEG] 46.32 07/21/09 REPLACE GASTROSTOMY TUBE 97.02 04/13/11 REPLACE SMALL BOWEL TUBE 97.03 05/10/10 SMALL BOWEL ENDOSCOPY 05470 06/21/10 TRANSFUSE NONAUT RED BLOOD CELLS IN PERIPH VEIN, PERC [id number] 12/26/17 VENOUS CATHETERIZATION NEC 38.93 06/21/10 Assessment/Plan - Assessment Assessment: * Likely locally advanced left breast cancer with axillary LN involvement; family refused biopsy * Breast fungating mass * Respiratory failure * Anemia Start Arimidex,continue wound care, follow anemia anand Nutritional Asmnt/Malnutr-PDOC - Dietary Evaluation Malnutrition Findings (Please click <Entered> for more info): Nutritional Asmnt/Malnutrition Start: 12/27/17 15: 45 Text: Status: Complete Freq: Protocol: Document 12/27/17 15:45 LCHENG (Rec: 12/27/17 15:58 LCHENG [email or web address]) Nutritional Asmnt/Malnutrition Patient General Information Nutritional Screening High Risk Consult Diagnosis severe anemia/breast LT CA Pertinent Medical Hx/Surgical Hx HTN, DM, CVA, TIA, thyroid disorder, CP, resp failure, sepsis, ecoli Subjective Information Pt seen lying in bed via trach at kim of visit, awake, non verbal. Verified TF running at 30ml/hr at this time. Current Diet Order/ Nutrition Support Two Galdino HN 30ml/hr daily Pertinent Medications vit C, D5-0.9ns, colace, iron, synthroid, protonix Pertinent Labs 12/27 Na 135, BUN 32, Glucose 116 Nutritional Hx/Data Height 1.52 m Height (Calculated Centimeters) 152.4 Current Weight (lbs) 37.648 kg Weight (Calculated Kilograms) 37.6 Weight (Calculated Grams) 45040.2 [place] Body Weight 100 Body Mass Index (BMI) 16.2 Weight Status Underweight GI Symptoms GI Symptoms None Last BM not indicated Difficult in: None Usual diet at home Two Galdino HN 30ml/hr x 20hr at SNF per chart Skin Integrity/Comment: open wound to left breast - draining Estimated Nutritional Goals BEE in Kcals: Using Current wt Calories/Kcals/Kg 35-40 Kcals Calculated 1673-0406 Protein: Using Current wt Protein g/k.5-1.7 Protein Calculated 57-65 Fluid: ml 1330-1520ml (1ml/kcal) Nutritional Problem 1. Problem Problem increased nutrition related needs Etiology increased metabolic demand and impaired skin integrety Signs/Symptoms: breast CA, open wound Malnutrition Alert Is there a minimum of two criteria No selected? Query Text:Check all the applicable criteria. A minimum of two criteria are recommended for diagnosis of either severe or non-severe malnutrition. Malnutrition Related to Morbid Obesity Malnutrition related to morbid obesity No Intervention/Recommendation Comments 1. Continue with current TF regimen Two Galdino HN 30ml/hr continuous. It provides 1440kcal, 60g protein, 504ml free water, meeting 100% of nutritional needs. 2. Recommend Darryl BID via GT to help wound healing. 3. Monitor TF rate, tolerance, wt, skin integrity and labs 4. F/U as high risk in 2-3 days, 12/29-12/30 Expected Outcomes/Goals Expected Outcomes/Goals 1. Pt to meet at least 75% of nutritional needs via nutrition support with tolerance 2. Wt stability, skin integrity to improve, labs to approach WNL.
[2017-12-28 15:26] LABS: IRON LC 143 ug/dL (27-159); TIBC (LC) 349 ug/dL (250-450); UIBC 206 ug/dL (131-425)
[2017-12-28] MEDS: cefTRIAXone 1 GM in Sodium Chloride 0.9% 50 ML IV SCH (18:21)
--- NOTE | 2017-12-28 19:01 | Internal Medicine Prog Note ---
Internal Medicine Subjective - Subjective Service Date: 12/28/17 Patient seen and examined:: with staff Patient is:: awake Per staff patient has:: tolerating meds Internal Medicine Objective - Results Result Diagrams: 12/28/17 04:45 12/28/17 04:45 Recent Labs: Laboratory Last Values WBC 13.1 Th/cmm (4.8-10.8) H 12/28/17 04:45 RBC 3.92 Mil/cmm (3.80-5.10) 12/28/17 04:45 Hgb 10.2 gm/dL (12-16) L 12/28/17 04:45 Hct 31.4 % (41.0-60) L 12/28/17 04:45 MCV 80.0 fl (81-100) L 12/28/17 04:45 MCH 26.0 pg (27.0-31.0) L 12/28/17 04:45 MCHC Differential 32.4 pg (28.0-36.0) 12/28/17 04:45 RDW 13.6 % (11.5-20.0) 12/28/17 04:45 Plt Count 483 Th/cmm (150-400) H 12/28/17 04:45 MPV 6.9 fl 12/28/17 04:45 Neutrophils % 79.0 % (40.0-80.0) 12/28/17 04:45 Lymphocytes % 10.6 % (20.0-50.0) L 12/28/17 04:45 Monocytes % 9.2 % (2.0-10.0) 12/28/17 04:45 Eosinophils % 0.7 % (0.0-5.0) 12/28/17 04:45 Basophils % 0.5 % (0.0-2.0) 12/28/17 04:45 PT 9.8 SECONDS (9.5-11.5) 12/27/17 04:05 INR 0.94 (0.5-1.4) 12/27/17 04:05 PTT (Actin FS) 23.4 SECONDS (26.0-38.0) L 12/27/17 04:05 Sodium 140 mEq/L (136-145) 12/28/17 04:45 Potassium 3.6 mEq/L (3.5-5.1) 12/28/17 04:45 Chloride 106 mEq/L (98-107) 12/28/17 04:45 Carbon Dioxide 25.8 mEq/L (21.0-31.0) 12/28/17 04:45 Anion Gap 11.8 (7.0-16.0) 12/28/17 04:45 BUN 12 mg/dL (7-25) 12/28/17 04:45 Creatinine 0.5 mg/dL (0.6-1.2) L 12/28/17 04:45 Est GFR ( Amer) > 60.0 ml/min (>90) 12/28/17 04:45 Est GFR (Non-Af Amer) > 60.0 ml/min 12/28/17 04:45 BUN/Creatinine Ratio 24.0 12/28/17 04:45 Glucose 129 mg/dL (70-105) H 12/28/17 04:45 Calcium 9.3 mg/dL (8.6-10.3) 12/28/17 04:45 Magnesium 2.1 mg/dL (1.9-2.7) 12/27/17 04:05 Iron 143 ug/dL (27-159) 12/27/17 04:05 TIBC 349 ug/dL (250-450) 12/27/17 04:05 Iron Saturation 41 % (15-55) 12/27/17 04:05 Unsaturated IBC 206 ug/dL (131-425) 12/27/17 04:05 Total Bilirubin 0.6 mg/dL (0.3-1.0) 12/27/17 04:05 AST 22 U/L (13-39) 12/27/17 04:05 ALT 7 U/L (7-52) 12/27/17 04:05 Alkaline Phosphatase 60 U/L (34-104) 12/27/17 04:05 B-Natriuretic Peptide 30.6 pg/mL (5.0-100.0) 12/27/17 04:05 Total Protein 7.2 gm/dL (6.0-8.3) 12/27/17 04:05 Albumin 3.0 gm/dL (3.7-5.3) L 12/27/17 04:05 Globulin 4.2 gm/dL 12/27/17 04:05 Albumin/Globulin Ratio 0.7 (1.0-1.8) L 12/27/17 04:05 TSH 2.05 uIU/ml (0.34-5.60) 12/27/17 04:05 Urine Source CLEAN C 12/26/17 18:35 Urine Color YELLOW 12/26/17 18:35 Urine Clarity HAZY (CLEAR) 12/26/17 18:35 Urine pH 6.0 (4.6 - 8.0) 12/26/17 18:35 Ur Specific [place] <= 1.005 (1.005-1.030) 12/26/17 18:35 Urine Protein NEGATIVE mg/dL (NEGATIVE) 12/26/17 18:35 Urine Glucose (UA) NEGATIVE mg/dL (NEGATIVE) 12/26/17 18:35 Urine Ketones NEGATIVE mg/dL (NEGATIVE) 12/26/17 18:35 Urine Blood NEGATIVE (NEGATIVE) 12/26/17 18:35 Urine Nitrate NEGATIVE (NEGATIVE) 12/26/17 18:35 Urine Bilirubin NEGATIVE (NEGATIVE) 12/26/17 18:35 Urine Urobilinogen 0.2 E.U./dL (0.2 - 1.0) 12/26/17 18:35 Ur Leukocyte Esterase TRACE (NEGATIVE) H 12/26/17 18:35 Urine RBC NONE SEEN /hpf (0-5) 12/26/17 18:35 Urine WBC 2-5 /hpf (0-5) 12/26/17 18:35 Ur Epithelial Cells FEW /lpf (FEW) 12/26/17 18:35 Urine Bacteria NONE SEEN /hpf (NONE SEEN) 12/26/17 18:35 Blood Type O POSITIVE 12/26/17 19:15 Antibody Screen NEGATIVE 12/26/17 19:15 Crossmatch See Detail 12/26/17 19:15 - Physical Exam Vitals and I&O: Vital Signs Temp 97.8 F 12/28/17 18:00 Pulse 84 12/28/17 18:00 Resp 24 12/28/17 18:00 BP 152/73 18 18:00 Pulse Ox 100 12/28/17 18:00 Intake & Output 12/28/1718 12/29/17 06:59 18:59 06:59 Intake Total 1270 1360.667 Balance 1270 1360.667 Weight (lbs) 82 lb 88 lb Intake: Intake, IV Amount 1050 930.667 D5-0.9%Ns 1,000 ml @ 80 1000 930.667 mls/hr IV .[id number] [facility] Rx #:[id number] cefTRIAXone 1 gm In 50 Sodium Chloride 0.9% 50 ml @ 100 mls/hr IV Q24HR [facility] Rx#:[id number] Tube Feeding 120 330 Other 100 100 Other: # Voids 5 2 # Bowel Movements 2 Weight Source Bedscale Bedscale Active Medications: Current Medications Acetaminophen (Tylenol) 650 mg GT Q4H PRN PRN Reason: mild pain or temp >101 Stop: 02/24/18 22:58 Acetaminophen/Hydrocodone Bitart ([place] 5mg/325mg) 1 tab GT Q6H PRN PRN Reason: Pain (Moderate) Stop: 02/24/18 22:59 Acetylcysteine (Mucomyst 20%) 2 ml HHN Q4HRT [facility] Stop: 02/25/18 18:59 Last Admin: 12/28/17 18:57 Dose: 2 ml Albuterol Sulfate (Albuterol 2.5mg/3ml Neb Ud) 2.5 mg HHN QIDRT [facility] Stop: 02/25/18 06:59 Last Admin: 12/28/17 18:57 Dose: 2.5 mg Anastrozole (Arimidex) 1 mg GT DAILY [facility]; Protocol Stop: 02/26/18 10:44 Last Admin: 12/28/17 13:16 Dose: 1 mg Artificial Tears (Artificial Tears Ophth Soln) 1 drop EACH EYE TID [facility] Stop: 02/25/18 08:59 Last Admin: 12/28/17 14:00 Dose: 1 drop Ascorbic Acid (Vitamin C) 500 mg GT BID [facility] Stop: 02/25/18 08:59 Last Admin: 12/28/17 16:08 Dose: 500 mg Dicyclomine HCl (Bentyl) 20 mg GT Q6H [facility] Stop: 02/24/18 22:59 Last Admin: 12/28/17 16:10 Dose: 20 mg Docusate Sodium (Colace) 100 mg GT BID [facility] Stop: 02/25/18 08:59 Last Admin: 12/28/17 16:08 Dose: 100 mg Ferrous Sulfate (Iron) 300 mg GT TID [facility] Stop: 02/25/18 08:59 Last Admin: 12/28/17 14:11 Dose: 300 mg Dextrose/Sodium Chloride (D5-0.9%Ns) 1,000 mls @ 80 mls/hr IV .[id number] [facility] Stop: 02/24/18 23:14 Last Admin: 12/28/17 15:26 Dose: 80 mls/hr Ceftriaxone Sodium 1 gm/ (Sodium Chloride) 50 mls @ 100 mls/hr IV Q24HR [facility] Stop: 02/25/18 18:59 Last Admin: 12/28/17 18:21 Dose: 100 mls/hr Ipratropium [place] (Atrovent Neb 0.5mg/2.5ml) 0.5 mg HHN QIDRT [facility] Stop: 02/25/18 06:59 Last Admin: 12/28/17 18:57 Dose: 0.5 mg Levothyroxine Sodium (Synthroid) 0.05 mg GT DAILY [facility] Stop: 02/25/18 08:59 Last Admin: 12/28/17 08:34 Dose: 0.05 mg Magnesium Hydroxide (Milk Of Magnesia) 30 ml GT Q6H PRN PRN Reason: Constipation Stop: 02/24/18 22:58 Miscellaneous (Amino Acids/Protein Hydrolys [Pro-Stat Awc Liquid]) 30 ml GT DAILY [facility] Stop: 02/25/18 08:59 Morphine Sulfate (Ms-Contin) 15 mg PO BID [facility] Stop: 02/25/18 16:59 Last Admin: 12/28/17 16:08 Dose: 15 mg Morphine Sulfate (Morphine) 2 mg IVP Q4H PRN PRN Reason: Pain (Severe) Stop: 02/25/18 13:18 Last Admin: 12/28/17 10:58 Dose: 2 mg Mupirocin (Bactroban Oint) 1 appl TP BID [facility] Stop: 01/02/18 16:59 Last Admin: 12/28/17 16:08 Dose: 1 appl Nystatin (Mycostatin Cream) 1 appl TP DAILY [facility] Stop: 02/26/18 08:59 Last Admin: 12/28/17 09:55 Dose: 1 appl Ondansetron HCl (Zofran) 4 mg IV Q8H PRN PRN Reason: Nausea / Vomiting Stop: 02/24/18 23:00 Pantoprazole Sodium (Protonix) 40 mg GT BID [facility] Stop: 02/25/18 16:59 Last Admin: 12/28/17 16:08 Dose: 40 mg Sucralfate (Carafate) 1 gm GT QID [facility] Stop: 02/25/18 08:59 Last Admin: 12/28/17 16:08 Dose: 1 gm General: alert HEENT: NC/AT, PERRLA Neck: Supple Lungs: CTAB Cardiovascular: RRR, Normal S1, Normal S2, without murmur Abdomen: soft, non-tender, non-distended, positive bowel sound Neurological: no change - Procedures Procedures: Procedures Procedure Code Date BLOOD TRANSFUSION SERVICE 27687 06/21/10 CHANGE FEEDING DEVICE IN UP INTEST TRACT, LINEN CONTROLLER APPROACH [id number] 02/09/16 CHANGE GASTROSTOMY TUBE 41842 02/09/16 CONTINUOUS INVASIVE MECHANICAL VENTILATION <96 CONSEC HRS 96.71 05/10/10 CONTINUOUS INVASIVE MECHANICAL VENTILATION =/>96 CONSEC HRS 96.72 06/21/10 EGD BIOPSY SINGLE/MULTIPLE 09521 02/09/16 EGD DIAGNOSTIC BRUSH WASH 09768 07/21/[address] GASTROSTOMY TUBE 47248 02/09/16 EXCISION OF STOMACH, PYLORUS, ENDO, DIAGN [id number] 02/09/16 GASTRIC LAVAGE 96.33 07/21/09 INSERT INDWELLING CATH 57.94 06/21/10 INSERT NON-TUNNEL CV CATH 92644 07/21/09 INSERT PICC CATH 44850 06/21/10 INSERT TEMP BLADDER CATH 77082 06/21/10 INSPECTION OF LOWER INTESTINAL TRACT, ENDO [id number] 02/09/16 OTHER ENDOSCOPY OF SM INTEST 45.13 04/13/11 PACKED CELL TRANSFUSION 99.04 06/21/10 PERCUTANEOUS GASTROJEJUNOSTOMY [ENDOSCOPIC] 44.32 06/21/10 PERCUTANEOUS [ENDOSCOPIC] GASTROSTOMY [PEG] 43.11 09/10/06 PERCUTANEOUS [ENDOSCOPIC] JEJUNOSTOMY [PEG] 46.32 07/21/09 REPLACE GASTROSTOMY TUBE 97.02 04/13/11 REPLACE SMALL BOWEL TUBE 97.03 05/10/10 SMALL BOWEL ENDOSCOPY 27541 06/21/10 TRANSFUSE NONAUT RED BLOOD CELLS IN PERIPH VEIN, PERC [id number] 12/26/17 VENOUS CATHETERIZATION NEC 38.93 06/21/10 Internal Medicine Assmt/Plan - Assessment Assessment: severe anemia left breast ca acute renal insufficiency r/o acute dehydration dysphagia dm2 gt status tracheostomy status - Plan Plan: monitor h/h continue respiratory tx follow up labs in am continue current plan of care Nutritional Asmnt/Malnutr-PDOC - Dietary Evaluation Malnutrition Findings (Please click <Entered> for more info): Nutritional Asmnt/Malnutrition Start: 12/27/17 15: 45 Text: Status: Complete Freq: Protocol: Document 12/27/17 15:45 LCHENG (Rec: 12/27/17 15:58 LCHENG [email or web address]) Nutritional Asmnt/Malnutrition Patient General Information Nutritional Screening High Risk Consult Diagnosis severe anemia/breast LT CA Pertinent Medical Hx/Surgical Hx HTN, DM, CVA, TIA, thyroid disorder, CP, resp failure, sepsis, ecoli Subjective Information Pt seen lying in bed via trach at kim of visit, awake, non verbal. Verified TF running at 30ml/hr at this time. Current Diet Order/ Nutrition Support Two Galdino HN 30ml/hr daily Pertinent Medications vit C, D5-0.9ns, colace, iron, synthroid, protonix Pertinent Labs 12/27 Na 135, BUN 32, Glucose 116 Nutritional Hx/Data Height 5 ft Height (Calculated Centimeters) 152.4 Current Weight (lbs) 83 lb Weight (Calculated Kilograms) 37.6 Weight (Calculated Grams) 99579.2 [place] Body Weight 100 Body Mass Index (BMI) 16.2 Weight Status Underweight GI Symptoms GI Symptoms None Last BM not indicated Difficult in: None Usual diet at home Two Galdino HN 30ml/hr x 20hr at [facility] per chart Skin Integrity/Comment: open wound to left breast - draining Estimated Nutritional Goals BEE in Kcals: Using Current wt Calories/Kcals/Kg 35-40 Kcals Calculated 4649-5600 Protein: Using Current wt Protein g/k.5-1.7 Protein Calculated 57-65 Fluid: ml 1330-1520ml (1ml/kcal) Nutritional Problem 1. Problem Problem increased nutrition related needs Etiology increased metabolic demand and impaired skin integrety Signs/Symptoms: breast CA, open wound Malnutrition Alert Is there a minimum of two criteria No selected? Query Text:Check all the applicable criteria. A minimum of two criteria are recommended for diagnosis of either severe or non-severe malnutrition. Malnutrition Related to Morbid Obesity Malnutrition related to morbid obesity No Intervention/Recommendation Comments 1. Continue with current TF regimen Two Galdino HN 30ml/hr continuous. It provides 1440kcal, 60g protein, 504ml free water, meeting 100% of nutritional needs. 2. Recommend Darryl BID via GT to help wound healing. 3. Monitor TF rate, tolerance, wt, skin integrity and labs 4. F/U as high risk in 2-3 days, 12/29-12/30 Expected Outcomes/Goals Expected Outcomes/Goals 1. Pt to meet at least 75% of nutritional needs via nutrition support with tolerance 2. Wt stability, skin integrity to improve, labs to approach WNL.
[2017-12-29] MEDS: Morphine Sulfate 2 mg/mL 1mL Syr IVP PRN ×3 (02:33→10:34)
[2017-12-29 04:15] LABS: FOLIC ACID >20.0 ng/mL (>3.0)
[2017-12-29] MEDS: D5-0.9%NS 1,000 ML IV SCH (05:24)
[2017-12-29] MEDS: Hydrocodone/APAP 5mg/325mg Tab GT PRN ×2 (05:25→14:00)
[2017-12-29] MEDS: Dicyclomine 10 mg Cap GT SCH ×3 (05:25→17:05)
[2017-12-29 05:29] LABS: % BASOPHILS 0.4 % (0.0-2.0); % LYMPHOCYTES 17.8 % (20.0-50.0); % MONOCYTES 12.8 % (2.0-10.0); EOSINOPHILE ABSOLUTE 0.3 Th/cmm (0.1-0.4); HEMATOCRIT 31.9 % (41.0-60); HEMOGLOBIN 10.5 gm/dL (12-16); LYMPHOCYTE ABSOLUTE 1.5 Th/cmm (1.5-3.0); MEAN CELL VOLUME 82.4 fl (81-100); MEAN CORPUSCULAR HGB CONC 32.8 pg (28.0-36.0); MONOCYTE ABSOLUTE 1.1 Th/cmm (0.3-1.0); NEUTROPHILE ABSOLUTE 5.7 Th/cmm (1.8-8.0); PLATELET COUNT 378 Th/cmm (150-400); RED BLOOD COUNT 3.87 Mil/cmm (3.80-5.10); RED CELL DISTRIBUTION WIDTH 13.3 % (11.5-20.0); WHITE BLOOD COUNT 8.6 Th/cmm (4.8-10.8)
[2017-12-29] MEDS: Ipratropium Neb 0.5 mg/2.5 mL UD HHN SCH ×2 (07:20→10:26)
[2017-12-29] MEDS: Albuterol Nebulizer 2.5mg/3mL HHN SCH ×2 (07:20→10:26)
[2017-12-29 07:44] LABS: ANION GAP 9.3 (7.0-16.0); BUN - UREA NITROGEN 9 mg/dL (7-25); CALCIUM SERUM 9.3 mg/dL (8.6-10.3); CARBON DIOXIDE 25.3 mEq/L (21.0-31.0); CHLORIDE 107 mEq/L (98-107); CREATININE - SERUM 0.5 mg/dL (0.6-1.2); GFR AFRICAN-AMERICAN > 60.0 ml/min (>90); GFR NON AFRICAN-AMERICAN > 60.0 ml/min; GLUCOSE 116 mg/dL (70-105); POTASSIUM SERUM 3.6 mEq/L (3.5-5.1); SODIUM SERUM 138 mEq/L (136-145)
[2017-12-29] MEDS: Polyvinyl Alcohol Ophth Soln 15 mL Bottle EACH EYE SCH ×2 (08:59→13:31)
[2017-12-29] MEDS: Pantoprazole 40 mg/Packet GT SCH ×2 (09:00→17:05)
[2017-12-29] MEDS: Levothyroxine 0.05 Mg Tab GT SCH (09:00)
[2017-12-29] MEDS: Nystatin Cream 100,000 u/gm Cream 15 gm TP SCH (09:00)
[2017-12-29] MEDS: Docusate Sodium 100 mg/10 mL UD GT SCH ×2 (09:00→17:05)
[2017-12-29] MEDS: Ferrous Sulfate 300 MG/5 ML UDC GT SCH ×2 (09:00→13:31)
[2017-12-29] MEDS: Multivitamin w/ Minerals Tab GT SCH (09:00)
--- NOTE | 2017-12-29 13:22 | Internal Medicine Prog Note ---
Internal Medicine Subjective - Subjective Service Date: 12/29/17 (dc summary [id number]) Patient is:: awake Per staff patient has:: tolerating meds Internal Medicine Objective - Results Result Diagrams: 12/29/17 05:00 12/29/17 06:55 Recent Labs: Laboratory Last Values WBC 8.6 Th/cmm (4.8-10.8) 12/29/17 05:00 RBC 3.87 Mil/cmm (3.80-5.10) 12/29/17 05:00 Hgb 10.5 gm/dL (12-16) L 12/29/17 05:00 Hct 31.9 % (41.0-60) L 12/29/17 05:00 MCV 82.4 fl (81-100) 12/29/17 05:00 MCH 27.0 pg (27.0-31.0) 12/29/17 05:00 MCHC Differential 32.8 pg (28.0-36.0) 12/29/17 05:00 RDW 13.3 % (11.5-20.0) 12/29/17 05:00 Plt Count 378 Th/cmm (150-400) 12/29/17 05:00 MPV 7.0 fl 12/29/17 05:00 Neutrophils % 65.0 % (40.0-80.0) 12/29/17 05:00 Lymphocytes % 17.8 % (20.0-50.0) L 12/29/17 05:00 Monocytes % 12.8 % (2.0-10.0) H 12/29/17 05:00 Eosinophils % 4.0 % (0.0-5.0) 12/29/17 05:00 Basophils % 0.4 % (0.0-2.0) 12/29/17 05:00 PT 9.8 SECONDS (9.5-11.5) 12/27/17 04:05 INR 0.94 (0.5-1.4) 12/27/17 04:05 PTT (Actin FS) 23.4 SECONDS (26.0-38.0) L 12/27/17 04:05 Sodium 138 mEq/L (136-145) 12/29/17 06:55 Potassium 3.6 mEq/L (3.5-5.1) 12/29/17 06:55 Chloride 107 mEq/L (98-107) 12/29/17 06:55 Carbon Dioxide 25.3 mEq/L (21.0-31.0) 12/29/17 06:55 Anion Gap 9.3 (7.0-16.0) 12/29/17 06:55 BUN 9 mg/dL (7-25) 12/29/17 06:55 Creatinine 0.5 mg/dL (0.6-1.2) L 12/29/17 06:55 Est GFR ( Amer) > 60.0 ml/min (>90) 12/29/17 06:55 Est GFR (Non-Af Amer) > 60.0 ml/min 12/29/17 06:55 BUN/Creatinine Ratio 18.0 12/29/17 06:55 Glucose 116 mg/dL (70-105) H 12/29/17 06:55 Calcium 9.3 mg/dL (8.6-10.3) 12/29/17 06:55 Magnesium 2.1 mg/dL (1.9-2.7) 12/27/17 04:05 Iron 143 ug/dL (27-159) 12/27/17 04:05 TIBC 349 ug/dL (250-450) 12/27/17 04:05 Iron Saturation 41 % (15-55) 12/27/17 04:05 Unsaturated IBC 206 ug/dL (131-425) 12/27/17 04:05 Ferritin 45 ng/mL (15-150) 12/27/17 04:05 Total Bilirubin 0.6 mg/dL (0.3-1.0) 12/27/17 04:05 AST 22 U/L (13-39) 12/27/17 04:05 ALT 7 U/L (7-52) 12/27/17 04:05 Alkaline Phosphatase 60 U/L (34-104) 12/27/17 04:05 B-Natriuretic Peptide 30.6 pg/mL (5.0-100.0) 12/27/17 04:05 Total Protein 7.2 gm/dL (6.0-8.3) 12/27/17 04:05 Albumin 3.0 gm/dL (3.7-5.3) L 12/27/17 04:05 Globulin 4.2 gm/dL 12/27/17 04:05 Albumin/Globulin Ratio 0.7 (1.0-1.8) L 12/27/17 04:05 Vitamin B12 1899 pg/mL (232-1245) H 12/27/17 04:05 Folic Acid >20.0 ng/mL (>3.0) 12/27/17 04:05 TSH 2.05 uIU/ml (0.34-5.60) 12/27/17 04:05 Urine Source CLEAN C 12/26/17 18:35 Urine Color YELLOW 12/26/17 18:35 Urine Clarity HAZY (CLEAR) 12/26/17 18:35 Urine pH 6.0 (4.6 - 8.0) 12/26/17 18:35 Ur Specific Lavinia <= 1.005 (1.005-1.030) 12/26/17 18:35 Urine Protein NEGATIVE mg/dL (NEGATIVE) 12/26/17 18:35 Urine Glucose (UA) NEGATIVE mg/dL (NEGATIVE) 12/26/17 18:35 Urine Ketones NEGATIVE mg/dL (NEGATIVE) 12/26/17 18:35 Urine Blood NEGATIVE (NEGATIVE) 12/26/17 18:35 Urine Nitrate NEGATIVE (NEGATIVE) 12/26/17 18:35 Urine Bilirubin NEGATIVE (NEGATIVE) 12/26/17 18:35 Urine Urobilinogen 0.2 E.U./dL (0.2 - 1.0) 12/26/17 18:35 Ur Leukocyte Esterase TRACE (NEGATIVE) H 12/26/17 18:35 Urine RBC NONE SEEN /hpf (0-5) 12/26/17 18:35 Urine WBC 2-5 /hpf (0-5) 12/26/17 18:35 Ur Epithelial Cells FEW /lpf (FEW) 12/26/17 18:35 Urine Bacteria NONE SEEN /hpf (NONE SEEN) 12/26/17 18:35 Blood Type O POSITIVE 12/26/17 19:15 Antibody Screen NEGATIVE 12/26/17 19:15 Crossmatch See Detail 12/26/17 19:15 - Physical Exam Vitals and I&O: Vital Signs Temp 97.7 F 12/29/17 13:00 Pulse 76 12/29/17 13:00 Resp 23 12/29/17 13:00 BP 140/76 12/29/17 13:00 Pulse Ox 99 12/29/17 13:00 Intake & Output 12/28/17 12/29/17 12/29/17 18:59 06:59 18:59 Intake Total 5642.429 3084 Balance 6584.965 8880 Weight (lbs) 88 lb 87 lb Intake: Intake, IV Amount 778.971 2849 D5-0.9%Ns 1,000 ml @ 80 644.034 0662 mls/hr IV .[id number] [facility] Rx #:[id number] cefTRIAXone 1 gm In 50 Sodium Chloride 0.9% 50 ml @ 100 mls/hr IV Q24HR [facility] Rx#:[id number] Tube Feeding 330 Other 100 150 Other: # Voids 2 5 # Bowel Movements 2 Weight Source Bedscale Bedscale Active Medications: Current Medications Acetaminophen (Tylenol) 650 mg GT Q4H PRN PRN Reason: mild pain or temp >101 Stop: 02/24/18 22:58 Acetaminophen/Hydrocodone Bitart ([place] 5mg/325mg) 1 tab GT Q6H PRN PRN Reason: Pain (Moderate) Stop: 02/24/18 22:59 Last Admin: 12/29/17 05:25 Dose: 1 tab Acetylcysteine (Mucomyst 20%) 2 ml HHN Q4HRT [facility] Stop: 02/25/18 18:59 Last Admin: 12/29/17 10:26 Dose: 2 ml Albuterol Sulfate (Albuterol 2.5mg/3ml Neb Ud) 2.5 mg HHN QIDRT [facility] Stop: 02/25/18 06:59 Last Admin: 12/29/17 10:26 Dose: 2.5 mg Amlodipine Besylate (Norvasc) 5 mg GT DAILY [facility] Stop: 02/27/18 10:59 Anastrozole (Arimidex) 1 mg GT DAILY [facility]; Protocol Stop: 02/26/18 10:44 Last Admin: 12/29/17 09:13 Dose: 1 mg Artificial Tears (Artificial Tears Ophth Soln) 1 drop EACH EYE TID [facility] Stop: 02/25/18 08:59 Last Admin: 12/29/17 08:59 Dose: 1 drop Ascorbic Acid (Vitamin C) 500 mg GT BID [facility] Stop: 02/25/18 08:59 Last Admin: 12/29/17 09:00 Dose: 500 mg Dicyclomine HCl (Bentyl) 20 mg GT Q6H [facility] Stop: 02/24/18 22:59 Last Admin: 12/29/17 11:13 Dose: 20 mg Docusate Sodium (Colace) 100 mg GT BID [facility] Stop: 02/25/18 08:59 Last Admin: 12/29/17 09:00 Dose: 100 mg Ferrous Sulfate (Iron) 300 mg GT TID [facility] Stop: 02/25/18 08:59 Last Admin: 12/29/17 09:00 Dose: 300 mg Dextrose/Sodium Chloride (D5-0.9%Ns) 1,000 mls @ 80 mls/hr IV .[id number] [facility] Stop: 02/24/18 23:14 Last Admin: 12/29/17 05:24 Dose: 80 mls/hr Ceftriaxone Sodium 1 gm/ (Sodium Chloride) 50 mls @ 100 mls/hr IV Q24HR [facility] Stop: 02/25/18 18:59 Last Infusion: 12/28/17 21:50 Dose: Infused Ipratropium [place] (Atrovent Neb 0.5mg/2.5ml) 0.5 mg HHN QIDRT [facility] Stop: 02/25/18 06:59 Last Admin: 12/29/17 10:26 Dose: 0.5 mg Levothyroxine Sodium (Synthroid) 0.05 mg GT DAILY [facility] Stop: 02/25/18 08:59 Last Admin: 12/29/17 09:00 Dose: 0.05 mg Magnesium Hydroxide (Milk Of Magnesia) 30 ml GT Q6H PRN PRN Reason: Constipation Stop: 02/24/18 22:58 Metoprolol Tartrate (Lopressor) 50 mg GT Q12HR [facility] Stop: 02/27/18 11:59 Last Admin: 12/29/17 11:14 Dose: 50 mg Morphine Sulfate (Ms-Contin) 15 mg PO BID [facility] Stop: 02/25/18 16:59 Last Admin: 12/29/17 09:00 Dose: 15 mg Morphine Sulfate (Morphine) 2 mg IVP Q4H PRN PRN Reason: Pain (Severe) Stop: 02/25/18 13:18 Last Admin: 12/29/17 10:34 Dose: 2 mg Mupirocin (Bactroban Oint) 1 appl TP BID [facility] Stop: 01/02/18 16:59 Last Admin: 12/29/17 08:59 Dose: 1 appl Nystatin (Mycostatin Cream) 1 appl TP DAILY [facility] Stop: 02/26/18 08:59 Last Admin: 12/29/17 09:00 Dose: 1 appl Ondansetron HCl (Zofran) 4 mg IV Q8H PRN PRN Reason: Nausea / Vomiting Stop: 02/24/18 23:00 Pantoprazole Sodium (Protonix) 40 mg GT BID [facility] Stop: 02/25/18 16:59 Last Admin: 12/29/17 09:00 Dose: 40 mg Sucralfate (Carafate) 1 gm GT QID [facility] Stop: 02/25/18 08:59 Last Admin: 12/29/17 09:00 Dose: 1 gm General: alert HEENT: NC/AT, PERRLA Neck: Supple Lungs: CTAB Cardiovascular: RRR, Normal S1, Normal S2, without murmur Abdomen: soft, non-tender, non-distended, positive bowel sound Neurological: no change - Procedures Procedures: Procedures Procedure Code Date BLOOD TRANSFUSION SERVICE 16864 06/21/10 CHANGE FEEDING DEVICE IN UP INTEST TRACT, DIRECTOR OF CONVENTION SERVICES APPROACH [id number] 02/09/16 CHANGE GASTROSTOMY TUBE 70902 02/09/16 CONTINUOUS INVASIVE MECHANICAL VENTILATION <96 CONSEC HRS 96.71 05/10/10 CONTINUOUS INVASIVE MECHANICAL VENTILATION =/>96 CONSEC HRS 96.72 06/21/10 EGD BIOPSY SINGLE/MULTIPLE 92889 02/09/16 EGD DIAGNOSTIC BRUSH WASH 65417 07/21/[address] GASTROSTOMY TUBE 66016 02/09/16 EXCISION OF STOMACH, PYLORUS, ENDO, DIAGN [id number] 02/09/16 GASTRIC LAVAGE 96.33 07/21/09 INSERT INDWELLING CATH 57.94 06/21/10 INSERT NON-TUNNEL CV CATH 19504 07/21/09 INSERT PICC CATH 14953 06/21/10 INSERT TEMP BLADDER CATH 99077 06/21/10 INSPECTION OF LOWER INTESTINAL TRACT, ENDO [id number] 02/09/16 OTHER ENDOSCOPY OF SM INTEST 45.13 04/13/11 PACKED CELL TRANSFUSION 99.04 06/21/10 PERCUTANEOUS GASTROJEJUNOSTOMY [ENDOSCOPIC] 44.32 06/21/10 PERCUTANEOUS [ENDOSCOPIC] GASTROSTOMY [PEG] 43.11 09/10/06 PERCUTANEOUS [ENDOSCOPIC] JEJUNOSTOMY [PEG] 46.32 07/21/09 REPLACE GASTROSTOMY TUBE 97.02 04/13/11 REPLACE SMALL BOWEL TUBE 97.03 05/10/10 SMALL BOWEL ENDOSCOPY 77565 06/21/10 TRANSFUSE NONAUT RED BLOOD CELLS IN PERIPH VEIN, PERC 11190H1 12/26/17 VENOUS CATHETERIZATION NEC 38.93 06/21/10 Internal Medicine Assmt/Plan - Assessment Assessment: severe anemia left breast ca acute renal insufficiency r/o acute dehydration dysphagia dm2 gt status tracheostomy status - Plan Plan: monitor h/h continue respiratory tx follow up labs in am continue current plan of care Nutritional Asmnt/Malnutr-PDOC - Dietary Evaluation Malnutrition Findings (Please click <Entered> for more info): Nutritional Asmnt/Malnutrition Start: 12/27/17 15: 45 Text: Status: Complete Freq: Protocol: Document 12/27/17 15:45 LCHENG (Rec: 12/27/17 15:58 [id number] [id number]) Nutritional Asmnt/Malnutrition Patient General Information Nutritional Screening High Risk Consult Diagnosis severe anemia/breast LT CA Pertinent Medical Hx/Surgical Hx HTN, DM, CVA, TIA, thyroid disorder, CP, resp failure, sepsis, ecoli Subjective Information Pt seen lying in bed via trach at kim of visit, awake, non verbal. Verified TF running at 30ml/hr at this time. Current Diet Order/ Nutrition Support Two Galdino HN 30ml/hr daily Pertinent Medications vit C, D5-0.9ns, colace, iron, synthroid, protonix Pertinent Labs 12/27 Na 135, BUN 32, Glucose 116 Nutritional Hx/Data Height 5 ft Height (Calculated Centimeters) 152.4 Current Weight (lbs) 83 lb Weight (Calculated Kilograms) 37.6 Weight (Calculated Grams) 74665.2 [place] Body Weight 100 Body Mass Index (BMI) 16.2 Weight Status Underweight GI Symptoms GI Symptoms None Last BM not indicated Difficult in: None Usual diet at home Two Galdino HN 30ml/hr x 20hr at SNF per chart Skin Integrity/Comment: open wound to left breast - draining Estimated Nutritional Goals BEE in Kcals: Using Current wt Calories/Kcals/Kg 35-40 Kcals Calculated 2282-6251 Protein: Using Current wt Protein g/k.5-1.7 Protein Calculated 57-65 Fluid: ml 1330-1520ml (1ml/kcal) Nutritional Problem 1. Problem Problem increased nutrition related needs Etiology increased metabolic demand and impaired skin integrety Signs/Symptoms: breast CA, open wound Malnutrition Alert Is there a minimum of two criteria No selected? Query Text:Check all the applicable criteria. A minimum of two criteria are recommended for diagnosis of either severe or non-severe malnutrition. Malnutrition Related to Morbid Obesity Malnutrition related to morbid obesity No Intervention/Recommendation Comments 1. Continue with current TF regimen Two Galdino HN 30ml/hr continuous. It provides 1440kcal, 60g protein, 504ml free water, meeting 100% of nutritional needs. 2. Recommend Darryl BID via GT to help wound healing. 3. Monitor TF rate, tolerance, wt, skin integrity and labs 4. F/U as high risk in 2-3 days, 12/29-12/30 Expected Outcomes/Goals Expected Outcomes/Goals 1. Pt to meet at least 75% of nutritional needs via nutrition support with tolerance 2. Wt stability, skin integrity to improve, labs to approach WNL.
[2017-12-29] MEDS ORDERED: Albuterol Nebulizer 2.5mg/3mL HHN SCH (15:00)
--- NOTE | 2017-12-29 16:54 | Discharge Summary ---
DATE OF DISCHARGE: 12/29/2017 DISCHARGE DIAGNOSES: Severe anemia, which has been treated, left breast CA, acute renal insufficiency, rule out acute dehydration, which the patient has been hydrated, mild protein-calorie malnutrition, cerebral palsy, chronic respiratory failure, dysphagia, type 2 diabetes, and gastrostomy and tracheostomy status. HISTORY OF PRESENT ILLNESS: This is a 52-year-old female who is well known to me from [facility]. I was called on this patient due to hemoglobin of 6.4. Initially, the patient' POLST form indicated no transfer, but when the charge nurse called the patient's family, the patient's family agreed to have the patient transferred to the hospital for blood transfusion. PHYSICAL EXAMINATION: GENERAL: Elderly female, appears chronically ill, no apparent distress. VITAL SIGNS: Stable. HEENT: Normocephalic, atraumatic. NECK: Supple. No mass. LUNGS: Clear bilaterally. HEART: Regular rate and rhythm. ABDOMEN: Soft, nontender. HOSPITAL COURSE: During the hospital stay, the patient was admitted to the ICU unit. The patient was transfused 2 units of PRBCs in the ER. The patient's H and H have been stable. The patient was positive for MRSA; therefore, was receiving Bactroban b.i.d. The patient was also on empiric IV antibiotics due to her left breast mass. The patient is stable. For this reason, the patient is stable for discharge. CONDITION UPON DISCHARGE: Fair. DISPOSITION: [facility]. JOB# [id number]
== END 2017-12-29 17:50 | DRG 364 ==
LOC: ER 17:00 → ICU 19:40
PROVIDERS: ADMIT Internal Medicine; ATTEND Internal Medicine
PROC: 30233N1 Transfusion of Nonautologous Red Blood Cells into Peripheral Vein, Percutaneous Approach (ICD-10-PCS; principal; 2017-12-26)
PROC: 0W383ZZ Control Bleeding in Chest Wall, Percutaneous Approach (ICD-10-PCS; 2017-12-26)
DX: C50.912 Malignant neoplasm of unspecified site of left female breast (principal); J96.10 Chronic respiratory failure, unspecified whether with hypoxia or hypercapnia; Z93.0 Tracheostomy status; E44.1 Mild protein-calorie malnutrition; R13.10 Dysphagia, unspecified; Z93.1 Gastrostomy status; E87.1 Hypo-osmolality and hyponatremia; E86.0 Dehydration; N28.9 Disorder of kidney and ureter, unspecified; D63.0 Anemia in neoplastic disease; Z68.1 Body mass index [BMI] 19.9 or less, adult; G80.9 Cerebral palsy, unspecified; E11.9 Type 2 diabetes mellitus without complications; Z66 Do not resuscitate; I10 Essential (primary) hypertension; E03.9 Hypothyroidism, unspecified; R62.7 Adult failure to thrive; Z86.73 Personal history of transient ischemic attack (TIA), and cerebral infarction without residual deficits; Z88.8 Allergy status to other drugs, medicaments and biological substances
CPT/HCPCS: 36415-UA; 71045-TC; 71260-TC; 80048-TC; 80053-TC; 81001-TC; 82607-90; 82728-90; 82746-90; 83540-90; 83550-90; 83735-TC; 83880-TC; 84443-TC; 85025-TC; 85610-TC; 86300-90; 86850-TC; 86900-TC; 86901-TC; 86922-TC; 87070; 87086-90; 90779; 94640; 94664; J0696; J2270; J7042; J7613; P9016; Q9967; Z7610